=== PATIENT | male | born 1950 | race Caucasian/White ===

== ENCOUNTER 2019-01-29 12:20 | Inpatient (IN) | payer MEDICARE ==
[2019-01-29] MEDS ORDERED: IPRATROPIUM-ALBUTEROL 3 ML NEB INHALATION STA (12:58)
--- NOTE | 2019-01-29 13:06 | ED ---
General Adult HPI - General Source: patient, RN notes reviewed Mode of arrival: ambulatory Limitations: no limitations <Kirk Garner - Last Filed: 01/29/19 16:08> <Chano Caro - Last Filed: 01/29/19 16:41> - General Chief complaint: Upper Respiratory Infection Stated complaint: pneumonia Time Seen by Provider: 01/29/19 12:40 - History of Present Illness Initial comments: 69-year-old male with a past medical history of atrial fibrillation, heart failure, diabetes, hypertension presents to the emergency determine for deformity of cough. Patient states he has had a productive cough with brown sputum for the past 5 days. States he has felt febrile as well. States he has had some chest pain and back pain. States the shortness of breath is keeping him up at night and feels that he is suffocating. Patient admits to cigar smoking history for many years. Also admits to history of heart failure but denies any known COPD. Patient did fly on a plane about a week ago from [place]. Denies any leg or calf pain. Patient went to urgent care earlier and was told he probably has a pneumonia and to come to the emergency department.Patient has no other complaints at this time including shortness of breath, chest pain, abdominal pain, nausea or vomiting, headache, or visual changes. (Kirk Garner) - Related Data Home Medications Medication Instructions Recorded Confirmed Dabigatran [Pradaxa] 150 mg PO BID 01/29/19 01/29/19 Losartan Potassium 100 mg PO DAILY 01/29/19 01/29/19 Melatonin 2.5 mg PO HS 01/29/19 01/29/19 OLANZapine [ZyPREXA] 2.5 mg PO DAILY 01/29/19 01/29/19 Omeprazole 20 mg PO DAILY 01/29/19 01/29/19 amLODIPine [Norvasc] 5 mg PO DAILY 01/29/19 01/29/19 clonazePAM [KlonoPIN] 1 mg PO HS 01/29/19 01/29/19 fluvoxaMINE MALEATE [Luvox] 100 mg PO HS 01/29/19 01/29/19 traZODone HCL 50 mg PO HS 01/29/19 01/29/19 Allergies Allergy/AdvReac Type Severity Reaction Status Date / Time No Known Allergies Allergy Verified 01/29/19 12:51 Review of Systems ROS Other: All systems not noted in ROS Statement are negative. <Kirk Garenr - Last Filed: 01/29/19 16:08> ROS Other: All systems not noted in ROS Statement are negative. <Chano Caro - Last Filed: 01/29/19 16:41> ROS Statement: Those systems with pertinent positive or pertinent negative responses have been documented in the HPI. Past Medical History Past Medical History: Atrial Fibrillation, Heart Failure, Diabetes Mellitus, Hypertension History of Any Multi-Drug Resistant Organisms: None Reported Past Surgical History: Hernia Repair, Orthopedic Surgery Past Psychological History: Anxiety, Depression Smoking Status: Never smoker Past Alcohol Use History: None Reported Past Drug Use History: None Reported <Kirk Garner - Last Filed: 01/29/19 16:08> General Exam Limitations: no limitations General appearance: alert, in no apparent distress Head exam: Present: atraumatic, normocephalic, normal inspection Eye exam: Present: normal appearance, PERRL, EOMI. Absent: scleral icterus, conjunctival injection, periorbital swelling ENT exam: Present: normal exam, mucous membranes moist Neck exam: Present: normal inspection, full ROM. Absent: tenderness, meningismus, lymphadenopathy Respiratory exam: Present: wheezes (Wheezing throughout lung johnson worse in the lower lungs.). Absent: respiratory distress, rales, rhonchi, stridor Cardiovascular Exam: Present: regular rate, normal rhythm, normal heart sounds. Absent: systolic murmur, diastolic murmur, rubs, gallop, clicks GI/Abdominal exam: Present: soft, normal bowel sounds. Absent: distended, tenderness, guarding, rebound, rigid Neurological exam: Present: alert Psychiatric exam: Present: normal affect, normal mood <Kirk Garner - Last Filed: 01/29/19 16:08> Course Vital Signs 01/29/19 01/29/19 01/29/19 12:22 12:53 13:30 Temperature 98.4 F Pulse Rate 62 57 L Respiratory 18 22 Rate Blood Pressure 152/61 O2 Sat by Pulse 93 L Oximetry 01/29/19 01/29/19 01/29/19 13:33 13:35 14:21 Temperature Pulse Rate 65 63 Respiratory 22 Rate Blood Pressure O2 Sat by Pulse 97 Oximetry 01/29/19 01/29/19 15:00 16:31 Temperature 100.7 F H Pulse Rate 59 L 53 L Respiratory 16 22 Rate Blood Pressure 163/65 O2 Sat by Pulse 94 L 95 Oximetry EKG Findings - EKG Comments: EKG Findings:: Atrial fibrillation, ventricular rate 56, QRS 84, QTC 395 <Kirk Garner - Last Filed: 01/29/19 16:08> Medical Decision Making - Lab Data Result diagrams: 01/29/19 13:36 01/29/19 13:36 <Kirk Garner - Last Filed: 01/29/19 16:08> - Lab Data Result diagrams: 01/29/19 13:36 01/29/19 13:36 <Chano Caro - Last Filed: 01/29/19 16:41> - Medical Decision Making 69-year-old male with a history of atrial fibrillation on Prozac sec, heart failure, diabetes, hypertension presents for a chief complaint of cough. Patient has had a productive cough with brown sputum for the past 5 days. States he has felt febrile but has not had any fevers at home. States that he is very short of breath and it is keeping him up at night. Does admit to a cigar smoking history for many years. Denies any known COPD at this time. On presentation patient is 93% on room air. He was started on 2 L of oxygen. Patient sometimes uses oxygen at home but it is very rare. On auscultation lungs do have significant wheezing with some crackles noted at the bases. Rest pain with coughing this is reproducible. CBC unremarkable. CMP unremarkable. Troponin is negative. D-dimer was obtained due to recent travel which was elevated at 0.70. CT did show small bilateral pleural effusions. BNP 1250. At this time I believe patient is expressing a COPD exacerbation and has gone undiagnosed. He did spike a low-grade fever of 100.7. If the patient will be started on antibiotics, steroids, breathing treatments. One dose of Lasix will be given here in the emergency department. Patient will be admitted for further management. (Kirk Garner) Patient reevaluated and resting comfortably in bed. Patient still has significant rhonchi and wheezing. Patient updated on results and plan. Case was discussed in detail with Dr. Chaudhry, who will admit covered for hospital call with [facility]. (Chano Caro) - Lab Data Lab Results 01/29/19 01/29/19 01/29/19 Range/Units 13:36 13:36 13:36 WBC 5.2 (3.8-10.6) k/uL RBC 4.03 L (4.30-5.90) m/uL Hgb 12.5 L (13.0-17.5) gm/dL Hct 36.4 L (39.0-53.0) % MCV 90.3 (80.0-100.0) fL MCH 30.9 (25.0-35.0) pg MCHC 34.3 (31.0-37.0) g/dL RDW 14.4 (11.5-15.5) % Plt Count 183 (150-450) k/uL Neutrophils % 77 % Lymphocytes % 11 % Monocytes % 7 % Eosinophils % 3 % Basophils % 0 % Neutrophils # 4.0 (1.3-7.7) k/uL Lymphocytes # 0.6 L (1.0-4.8) k/uL Monocytes # 0.3 (0-1.0) k/uL Eosinophils # 0.2 (0-0.7) k/uL Basophils # 0.0 (0-0.2) k/uL PT (9.0-12.0) sec INR (<1.2) APTT (22.0-30.0) sec D-Dimer (<0.60) mg/L FEU Sodium 140 (137-145) mmol/L Potassium 4.0 (3.5-5.1) mmol/L Chloride 104 (98-107) mmol/L Carbon Dioxide 23 (22-30) mmol/L Anion Gap 13 mmol/L BUN 12 (9-20) mg/dL Creatinine 1.09 (0.66-1.25) mg/dL Est GFR (CKD-EPI)AfAm 79 (>60 ml/min/1.73 sqM) Est GFR (CKD-EPI)NonAf 68 (>60 ml/min/1.73 sqM) Glucose 136 H (74-99) mg/dL Calcium 9.2 (8.4-10.2) mg/dL Magnesium 1.8 (1.6-2.3) mg/dL Total Bilirubin 1.8 H (0.2-1.3) mg/dL AST 32 (17-59) U/L ALT 24 (21-72) U/L Alkaline Phosphatase 63 (38-126) U/L Troponin I (0.000-0.034) ng/mL NT-Pro-B Natriuret Pep 1250 pg/mL Total Protein 7.5 (6.3-8.2) g/dL Albumin 3.9 (3.5-5.0) g/dL 01/29/19 01/29/19 Range/Units 13:36 13:36 WBC (3.8-10.6) k/uL RBC (4.30-5.90) m/uL Hgb (13.0-17.5) gm/dL Hct (39.0-53.0) % MCV (80.0-100.0) fL MCH (25.0-35.0) pg MCHC (31.0-37.0) g/dL RDW (11.5-15.5) % Plt Count (150-450) k/uL Neutrophils % % Lymphocytes % % Monocytes % % Eosinophils % % Basophils % % Neutrophils # (1.3-7.7) k/uL Lymphocytes # (1.0-4.8) k/uL Monocytes # (0-1.0) k/uL Eosinophils # (0-0.7) k/uL Basophils # (0-0.2) k/uL PT 11.5 (9.0-12.0) sec INR 1.1 (<1.2) APTT 36.6 H (22.0-30.0) sec D-Dimer 0.70 H (<0.60) mg/L FEU Sodium (137-145) mmol/L Potassium (3.5-5.1) mmol/L Chloride (98-107) mmol/L Carbon Dioxide (22-30) mmol/L Anion Gap mmol/L BUN (9-20) mg/dL Creatinine (0.66-1.25) mg/dL Est GFR (CKD-EPI)AfAm (>60 ml/min/1.73 sqM) Est GFR (CKD-EPI)NonAf (>60 ml/min/1.73 sqM) Glucose (74-99) mg/dL Calcium (8.4-10.2) mg/dL Magnesium (1.6-2.3) mg/dL Total Bilirubin (0.2-1.3) mg/dL AST (17-59) U/L ALT (21-72) U/L Alkaline Phosphatase (38-126) U/L Troponin I <0.012 (0.000-0.034) ng/mL NT-Pro-B Natriuret Pep pg/mL Total Protein (6.3-8.2) g/dL Albumin (3.5-5.0) g/dL Disposition Is patient prescribed a controlled substance at d/c from ED?: No Time of Disposition: 16:02 <Kirk Garner - Last Filed: 01/29/19 16:08> <Chano Caro - Last Filed: 01/29/19 16:41> Clinical Impression: COPD exacerbation, Shortness of breath, Bilateral pleural effusion Disposition: ADMITTED IP TO THIS HOSP Condition: Fair Referrals: Nonstaff,Physician [Primary Care Provider] - 1-2 days
--- NOTE | 2019-01-29 14:05 | XR ---
EXAMINATION TYPE: XR chest 2V DATE OF EXAM: 01/29/2019 COMPARISON: NONE TECHNIQUE: PA and lateral views submitted. HISTORY: Shortness of breath FINDINGS: Heart is enlarged and there is bilateral small pleural effusions and basilar consolidation. Interstit ial pattern noted. Biapical pleural thickening. IMPRESSION: 1. Correlate for CHF.
[2019-01-29 14:06] LABS: Albumin 3.9 g/dL (3.5-5.0); Calcium 9.2 mg/dL (8.4-10.2); Magnesium 1.8 mg/dL (1.6-2.3); Total Bilirubin 1.8 mg/dL (0.2-1.3); Total Protein 7.5 g/dL (6.3-8.2)
[2019-01-29 14:10] LABS: INR 1.1 (<1.2); Partial Thromboplastin Time 36.6 sec (22.0-30.0); Prothrombin Time 11.5 sec (9.0-12.0)
[2019-01-29 14:11] LABS: Basophils % (A) 0 %; Eosinophils # (A) 0.2 k/uL (0-0.7); Eosinophils % (A) 3 %; HCT 36.4 % (39.0-53.0); HGB 12.5 gm/dL (13.0-17.5); Lymphocytes # (A) 0.6 k/uL (1.0-4.8); Lymphocytes % (A) 11 %; MCH 30.9 pg (25.0-35.0); MCHC 34.3 g/dL (31.0-37.0); MCV 90.3 fL (80.0-100.0); Mean Platelet Volume 7.8; Monocytes # (A) 0.3 k/uL (0-1.0); Monocytes % (A) 7 %; Neutrophils % (A) 77 %; Platelet Count 183 k/uL (150-450); RBC 4.03 m/uL (4.30-5.90); RDW 14.4 % (11.5-15.5); WBC 5.2 k/uL (3.8-10.6)
[2019-01-29 14:23] LABS: D-Dimer 0.7 mg/L FEU (<0.60)
--- NOTE | 2019-01-29 15:14 | CT ---
CT CHEST FOR PULMONARY EMBOLISM. EXAMINATION TYPE: CT chest angio for PE DATE OF EXAM: 01/29/2019 INDICATION: Cough and trouble breathing CT DLP: 1022 mGycm, Automated exposure control for dose reduction was used. CONTRAST: Patient injected with 100 mL of Isovue 370. COMPARISON: None TECHNIQUE: CT of the chest is performed on a spiral scan at 2 mm thick sections. Study is performed with intravenous contrast timed for evaluation for pulmonary embolism. This will limit additional po rtions of the evaluation. 3-D MIP images reconstructed by the technologist are reviewed on the compu ter in the coronal and sagittal planes. FINDINGS: No persistent filling defects are evident to suggest an acute pulmonary embolism. No mediastinal or hilar adenopathy enlarged by CT criteria is evident. The ascending aorta diameter at the level of the main pulmonary artery is 3.6 cm. The main pulmonary artery diameter at the bifur cation is 4.1 cm. Pulmonary hypertension should be considered. Right heart strain is not identified o therwise. There is some compressive atelectasis within the dependent portions of the lung bases bilaterally. Sm all bilateral pleural effusions are present. Limited CT section through the upper abdomen are unremarkable. IMPRESSIONS: 1. No acute pulmonary embolism. 2. Small bilateral pleural effusions with mild adjacent compressive atelectasis
[2019-01-29] MEDS ORDERED: FUROSEMIDE 10 MG/ML 2 ML VIAL IV STA (15:58)
[2019-01-29] MEDS ORDERED: methylPREDNISolone SOD SUCCI 125 MG/2 ML VIAL IV STA (16:02)
[2019-01-29] MEDS ORDERED: AZITHROMYCIN 500 MG in SODIUM CHLORIDE 0.9% 250 ML IVPB STA (16:07)
[2019-01-29] MEDS ORDERED: predniSONE 20 MG TAB PO SCH (16:15)
[2019-01-29] MEDS ORDERED: NALOXONE 0.4 MG/ML 1 ML VIAL IV PRN (18:07)
[2019-01-29] MEDS ORDERED: ACETAMINOPHEN TAB 325 MG TAB PO PRN (18:07)
[2019-01-29] MEDS: IPRATROPIUM-ALBUTEROL 3 ML NEB INHALATION SCH (18:15)
--- NOTE | 2019-01-29 18:41 | P.HPIM ---
History of Present Illness H&P Date: 01/29/19 Chief Complaint: Shortens with cough and sputum for 4-5 days prior to presen tation This 69-year-old male with past medical history significant for congestive heart failure, And manages type II, hypertension, atrial fibrillation on anticoagulation, gastroesophageal reflux disease and depression with anxiety disorder who presented to the hospital with above complaints. Patient apparently lives in [place] and was visiting his son in this area. Patient stated that just about the time when he reached [place] he started developing increasing shortness of breath. Patient stated that he was coughing and wheezing a lot. He was coughing up brownish phlegm with the blood tinge in it. Patient stated that he was feeling hot and cold and chilly but did not check his temperature. Patient stated that he was having difficulty laying down because of his shortness of breath and at times he has to wake up in the middle of the night and sit on the side of the bed to catch his breath. Patient also stated that his legs were getting little swollen which improves when he lays down in bed during the night. With these complaints patient was using [id number] decongestant medications without significant help so he came to the hospital for further evaluation. In the emergency department patient had extensive evaluation done including chest x-ray which showed some congestion, elevated d- dimer on blood test, CT PE protocol showed no pulmonary embolism. Patient was given nebulized treatment with some improvement in his condition and was diagnosed with COPD exacerbation and was admitted to the hospitalist service for further management. Patient denies chest pain, palpitation, headache, dizziness, diaphoresis, nausea, vomiting, diarrhea and denies rest of the review system. He reports that his shortness of breath was associated with ambulation and also while laying down. He stated that he used inhalers from his ex- without help. Patient stated he did not brought his inhalers which she was using while he was in [place]. Patient was given 20 mg IV Lasix and was started on IV Rocephin/azithromycin. Patient reported after getting these treatment he started feeling somewhat better. Review of Systems 12 point review of system was essentially negative other than mentioned in HPI. Past Medical History Past Medical History: Atrial Fibrillation, Heart Failure, Diabetes Mellitus, GERD/Reflux, Hypertension Additional Past Medical History / Comment(s): Depression and anxiety disorder. History of Any Multi-Drug Resistant Organisms: None Reported Past Surgical History: Hernia Repair, Orthopedic Surgery Past Psychological History: Anxiety, Depression Smoking Status: Former smoker (Smokes cigars in the past quit 4 years ago.) Past Alcohol Use History: None Reported Past Drug Use History: None Reported Medications and Allergies Home Medications Medication Instructions Recorded Confirmed Type Dabigatran [Pradaxa] 150 mg PO BID 01/29/19 01/29/19 History Losartan Potassium 100 mg PO DAILY 01/29/19 01/29/19 History Melatonin 2.5 mg PO HS 01/29/19 01/29/19 History OLANZapine [ZyPREXA] 2.5 mg PO DAILY 01/29/19 01/29/19 History Omeprazole 20 mg PO DAILY 01/29/19 01/29/19 History amLODIPine [Norvasc] 5 mg PO DAILY 01/29/19 01/29/19 History clonazePAM [KlonoPIN] 1 mg PO HS 01/29/19 01/29/19 History fluvoxaMINE MALEATE [Luvox] 100 mg PO HS 01/29/19 01/29/19 History traZODone HCL 50 mg PO HS 01/29/19 01/29/19 History Allergies Allergy/AdvReac Type Severity Reaction Status Date / Time No Known Allergies Allergy Verified 01/29/19 12:51 Physical Exam Vitals: Vital Signs Temp Pulse Resp BP Pulse Ox 01/29/19 18:18 68 01/29/19 16:31 53 L 22 163/65 95 01/29/19 15:00 100.7 F H 59 L 16 94 L 01/29/19 14:21 22 01/29/19 13:35 63 01/29/19 13:33 65 97 01/29/19 13:30 57 L 01/29/19 12:53 22 01/29/19 12:22 98.4 F 62 18 152/61 93 L Intake and Output 01/29/19 01/29/19 01/29/19 06:59 14:59 22:59 Other: Weight 122.47 kg - Constitutional General appearance: cooperative, morbidly obese, severe distress - EENT Eyes: EOMI, normal appearance ENT: hearing grossly normal, NA/AT - Neck Neck: no lymphadenopathy, normal ROM, no rigidity, no stridor, no thyromegaly - Respiratory Respiratory: bilateral: diminished, rhonchi, wheezing, prolonged expiration, negative: rales - Cardiovascular Trace bilateral lower extremity pitting edema noted. Heart rate: 69 Rhythm: irregularly irregular Heart sounds: normal: S1 (Variable heart sounds.), S2 Abnormal Heart Sounds: no systolic murmur, no diastolic murmur, no S3 Gallop, no S4 Gallop - Gastrointestinal Diffusely large bulky abdomen. General gastrointestinal: no distended, normal bowel sounds, no rigid, soft, no tenderness - Integumentary Integumentary: no cellulitis, no cyanotic, no decreased turgor, no flushed, no jaundiced, normal, no pale, no rash, no ulcer - Neurologic Moves all 4 extremities equally without gross focal neuro deficits. Neurologic: CNII-XII intact - Musculoskeletal Musculoskeletal: gait normal, no generalized weakness, strength equal bilaterally, no right sided weakness, no left sided weakness - Psychiatric Psychiatric: A&O x's 3, appropriate affect, intact judgment & insight Results CBC & Chem 7: 01/29/19 13:36 01/29/19 13:36 Labs: Abnormal Lab Results - Last 24 Hours (Table) 01/29/19 01/29/19 01/29/19 Range/Units 13:36 13:36 13:36 RBC 4.03 L (4.30-5.90) m/uL Hgb 12.5 L (13.0-17.5) gm/dL Hct 36.4 L (39.0-53.0) % Lymphocytes # 0.6 L (1.0-4.8) k/uL APTT 36.6 H (22.0-30.0) sec D-Dimer 0.70 H (<0.60) mg/L FEU Glucose 136 H (74-99) mg/dL Total Bilirubin 1.8 H (0.2-1.3) mg/dL Thrombosis Risk Factor Assmnt - DVT/VTE Prophylaxis DVT/VTE Prophylaxis: Contraindicated - See note (Patient already on Pardaxa for atrial fibrillation anticoagulation) Assessment and Plan (1) COPD exacerbation Narrative/Plan: Patient was started on IV antibiotics and HHN treatment with albuterol and Atrovent around the clock. Patient will be given IV steroids also. We will be continuing him on nasal cannula oxygen and monitoring his respiratory status. Current Visit: Yes Status: Acute Priority: High Code(s): J44.1 - CHRONIC OBSTRUCTIVE PULMONARY DISEASE W (ACUTE) EXACERBATION SNOMED Code(s): 449670652 (2) CHF (congestive heart failure) Narrative/Plan: There is no prior data available about the condition of the heart, patient did urinated significant amount of urine after 20 mg of IV Lasix I will continue as 10 mg IV Lasix every morning and monitor. Patient will be referred to cardiology for further evaluation and management. If needed 2-D echocardiogram will be done to assess his cardiac function. Patient was not on diuretic therapy at home but he stated that he was told that his heart is weak. Patient will be started on daily weights and strict I's and O's. Current Visit: Yes Status: Acute Priority: High Code(s): I50.9 - HEART FAILURE, UNSPECIFIED SNOMED Code(s): 23886392 (3) Atrial fibrillation with controlled ventricular rate Narrative/Plan: Patient heart rate is well controlled will put him on telemetry unit and monitor his heart rate. Patient may become tachycardic in response to albuterol treat ment and requires monitoring for next 24-48 hours. Patient is on anticoagulation with PARDEXA, we'll continue while he is in the hospital. Current Visit: Yes Status: Acute Priority: Medium Code(s): I48.91 - UNSPECIFIED ATRIAL FIBRILLATION SNOMED Code(s): 94290830 (4) Diabetes mellitus type 2 in obese Narrative/Plan: Patient started on consistent carbohydrate diet and his blood sugar will be monitored. Patient will be on IV steroids and that is going to increase the blood sugar so we will start him on sliding scale insulin aspart coverage per protocol. Current Visit: Yes Status: Acute Priority: Medium Code(s): E11.69 - TYPE 2 DIABETES MELLITUS WITH OTHER SPECIFIED COMPLICATION; E66.9 - OBESITY, UNSPECIFIED SNOMED Code(s): 71619145 (5) Hypertension, essential, benign Narrative/Plan: Blood pressure is slightly on the higher side most likely due to stress of coughing and acute illness. We will resume his home medication and monitor b lood pressure. Current Visit: Yes Status: Acute Priority: Medium Code(s): I10 - ESSENTIAL (PRIMARY) HYPERTENSION SNOMED Code(s): 6887572 (6) GERD (gastroesophageal reflux disease) Narrative/Plan: Currently patient is stable without symptoms we will resume his home proton pump inhibitor dose. Current Visit: Yes Status: Acute Priority: Medium Code(s): K21.9 - GASTRO- ESOPHAGEAL REFLUX DISEASE WITHOUT ESOPHAGITIS SNOMED Code(s): 118406083 (7) Depression Narrative/Plan: Is stable on current management, home medication will be continued. Current Visit: No Status: Chronic Priority: Medium Code(s): F32.9 - MAJOR DEPRESSIVE DISORDER, SINGLE EPISODE, UNSPECIFIED SNOMED Code(s): 03021689 (8) Anxiety disorder Narrative/Plan: Anxiety is well maintained and controlled on current management, I will continue home medications. Current Visit: No Status: Chronic Priority: Medium Code(s): F41.9 - ANXIETY DISORDER, UNSPECIFIED SNOMED Code(s): 734701015 Plan: Patient will be kept in the hospital for next 48-72 hours for IV antibiotics management and once patient is more stable he will be discharged on oral jailyn tment and patient will be going back to [place] following up with his on PCP and rental agent. Time with Patient: Greater than 30
[2019-01-29 21:30] VITALS: BMI 41.8
[2019-01-29] MEDS: methylPREDNISolone SOD SUCCI 125 MG/2 ML VIAL IV SCH ×2 (22:47→23:53)
[2019-01-29] MEDS: MELATONIN 5 MG TABLET PO SCH (22:51)
[2019-01-29] MEDS: traZODone HCL 50 MG TAB PO SCH (22:51)
[2019-01-29] MEDS: DABIGATRAN 150 MG CAP PO SCH (22:51)
[2019-01-29] MEDS: clonazePAM 1 MG TAB PO SCH (22:52)
[2019-01-30] MEDS: methylPREDNISolone SOD SUCCI 125 MG/2 ML VIAL IV SCH ×3 (06:13→17:19)
[2019-01-30 07:28] LABS: Glucose,Whole Blood 270 mg/dL (75-99)
[2019-01-30] MEDS: INSULIN ASPART (NovoLOG) 100 UNIT/ML VIAL SQ SCH ×4 (07:40→17:20)
[2019-01-30] MEDS: amLODIPine 5 MG TAB PO SCH (07:46)
[2019-01-30] MEDS: LOSARTAN 50 MG TAB PO SCH (07:46)
[2019-01-30] MEDS: PANTOPRAZOLE 40 MG TABLET PO SCH (07:46)
[2019-01-30] MEDS: OLANZapine 2.5 MG TAB PO SCH (07:47)
[2019-01-30] MEDS: DABIGATRAN 150 MG CAP PO SCH ×2 (07:48→22:04)
[2019-01-30] MEDS: IPRATROPIUM-ALBUTEROL 3 ML NEB INHALATION SCH ×5 (08:07→19:56)
[2019-01-30 08:27] LABS: Basophils % (A) 0 %; Eosinophils % (A) 0 %; HGB 12.5 gm/dL (13.0-17.5); Lymphocytes # (A) 0.6 k/uL (1.0-4.8); Lymphocytes % (A) 10 %; MCH 30.4 pg (25.0-35.0); MCV 92.1 fL (80.0-100.0); Mean Platelet Volume 7.3; Monocytes # (A) 0.2 k/uL (0-1.0); Monocytes % (A) 2 %; Neutrophils # (A) 5.5 k/uL (1.3-7.7); Neutrophils % (A) 86 %; Platelet Count 198 k/uL (150-450); RBC 4.12 m/uL (4.30-5.90); RDW 13.5 % (11.5-15.5); WBC 6.3 k/uL (3.8-10.6)
[2019-01-30 08:53] LABS: Calcium 9.4 mg/dL (8.4-10.2); Potassium 4.3 mmol/L (3.5-5.1)
[2019-01-30] MEDS ORDERED: AZITHROMYCIN 500 MG in SODIUM CHLORIDE 0.9% 250 ML IVPB SCH (09:00)
[2019-01-30] MEDS ORDERED: FUROSEMIDE 10 MG/ML 2 ML VIAL IV SCH (09:00)
[2019-01-30] MEDS: FUROSEMIDE 10 MG/ML 4 ML VIAL IV SCH ×2 (09:10→22:02)
[2019-01-30] MEDS: INSULIN DETEMIR (LEVEMIR) 100 UNIT/ML SYR SQ SCH (11:10)
[2019-01-30 11:50] LABS: Glucose,Whole Blood 285 mg/dL (75-99)
--- NOTE | 2019-01-30 11:52 | P.PN ---
Subjective Progress Note Date: 01/30/19 Today patient reports that he is feeling little better and his breathing/cough is slightly better but overall condition stays the same. Patient states he is able to walk to the bathroom but still having episodes of shortness of breath and wheezing. Noted that patient's diuretic has been increased by cardiology service and patient was having echocardiogram when this copywriter visited him. Patient denies fever, chills, nausea, vomiting, diarrhea but he states his shortness of breath is still there although slightly better. His cough and phlegm production is slightly better too. Nurses reported the patient's blood sugar is running around 250s and he reported that he was on insulin at home but forgot to report at the time of admission. Patient reported that he is takes 32 units of insulin glargine every morning and insulin aspart as needed depending upon the blood glucose. Objective - Vital Signs Vital signs: Vital Signs Temp 97.9 F 01/30/19 07:00 Pulse 70 01/30/19 11:41 Resp 16 01/30/19 08:00 BP 162/63 01/30/19 07:00 Pulse Ox 91 L 01/30/19 07:00 Intake & Output 01/29/19 01/30/19 01/30/19 18:59 06:59 18:59 Output Total 1000 Balance -1000 Weight 122.47 kg 122.3 kg Output: Urine 1000 Other: Voiding Method Toilet Toilet # Voids 1 - Constitutional General appearance: Present: cooperative, no acute distress - EENT Eyes: Present: EOMI, normal appearance ENT: Present: hearing grossly normal, NA/AT - Neck Neck: Present: normal ROM. Absent: lymphadenopathy, rigidity, stridor, thyromegaly - Respiratory Respiratory: bilateral: diminished, rhonchi, wheezing - Cardiovascular Rhythm: regular Heart sounds: normal: S1, S2 Abnormal Heart Sounds: Absent: systolic murmur, diastolic murmur, S3 Gallop, S4 Gallop - Gastrointestinal General gastrointestinal: Present: normal bowel sounds, soft. Absent: distended, rigid, tenderness - Neurologic Neurologic: Present: CNII-XII intact. Absent: focal deficits - Psychiatric Psychiatric: Present: A&O x's 3, appropriate affect, intact judgment & insight - Allied health notes Allied health notes reviewed: nursing - Labs CBC & Chem 7: 01/30/19 07:48 01/30/19 07:48 Labs: Abnormal Lab Results - Last 24 Hours (Table) 01/29/19 01/29/19 01/29/19 Range/Units 13:36 13:36 13:36 RBC 4.03 L (4.30-5.90) m/uL Hgb 12.5 L (13.0-17.5) gm/dL Hct 36.4 L (39.0-53.0) % Lymphocytes # 0.6 L (1.0-4.8) k/uL APTT 36.6 H (22.0-30.0) sec D-Dimer 0.70 H (<0.60) mg/L FEU Glucose 136 H (74-99) mg/dL POC Glucose (mg/dL) (75-99) mg/dL Total Bilirubin 1.8 H (0.2-1.3) mg/dL 01/30/19 01/30/19 01/30/19 Range/Units 07:26 07:48 07:48 RBC 4.12 L (4.30-5.90) m/uL Hgb 12.5 L (13.0-17.5) gm/dL Hct 38.0 L (39.0-53.0) % Lymphocytes # 0.6 L (1.0-4.8) k/uL APTT (22.0-30.0) sec D-Dimer (<0.60) mg/L FEU Glucose 256 H (74-99) mg/dL POC Glucose (mg/dL) 270 H (75-99) mg/dL Total Bilirubin (0.2-1.3) mg/dL Assessment and Plan (1) COPD exacerbation Current Visit: Yes Status: Acute Priority: High Code(s): J44.1 - CHRONIC OBSTRUCTIVE PULMONARY DISEASE W (ACUTE) EXACERBATION SNOMED Code(s): 221485312 (2) CHF (congestive heart failure) Current Visit: Yes Status: Acute Priority: High Code(s): I50.9 - HEART FAILURE, UNSPECIFIED SNOMED Code(s): 74644440 (3) Atrial fibrillation with controlled ventricular rate Current Visit: Yes Status: Acute Priority: Medium Code(s): I48.91 - UNSPECIFIED ATRIAL FIBRILLATION SNOMED Code(s): 70682374 (4) Diabetes mellitus type 2 in obese Current Visit: Yes Status: Acute Priority: Medium Code(s): E11.69 - TYPE 2 DIABETES MELLITUS WITH OTHER SPECIFIED COMPLICATION; E66.9 - OBESITY, UNSPECIFIED SNOMED Code(s): 36571571 (5) Hypertension, essential, benign Current Visit: Yes Status: Acute Priority: Medium Code(s): I10 - ESSENTIAL (PRIMARY) HYPERTENSION SNOMED Code(s): 4660697 (6) GERD (gastroesophageal reflux disease) Current Visit: Yes Status: Acute Priority: Medium Code(s): K21.9 - GASTRO- ESOPHAGEAL REFLUX DISEASE WITHOUT ESOPHAGITIS SNOMED Code(s): 036613306 (7) Depression Current Visit: No Status: Chronic Priority: Medium Code(s): F32.9 - MAJOR DEPRESSIVE DISORDER, SINGLE EPISODE, UNSPECIFIED SNOMED Code(s): 59552868 (8) Anxiety disorder Current Visit: No Status: Chronic Priority: Medium Code(s): F41.9 - ANXIETY DISORDER, UNSPECIFIED SNOMED Code(s): 478310574 Plan: Patient current management will be continued as it is but I will increase the dose of hand-held unless treatment to every 4 hours. Patient's daily weights will be monitored and strict input and output will be measured. 2-D echocardiogram was done report is pending at this point. Patient will be started on two third of his home dose of insulin glargine i.e. 20 units and he will be continued on sliding scale insulin Aspart coverage. Advanced care plan was discussed and patient wants to continue full code. Rest of the medications for chronic stable medical problems will be continued as it is. Plan is to continue treatment for next 24-48 hours and if patient shows signs of significant improvement he can be transitioned to oral antibiotics and discharged home. Time with Patient: Less than 30
--- NOTE | 2019-01-30 13:51 | P.CRDCN ---
History of Present Illness History of present illness: This is a pleasant 69-year-old male past medical history significant for persistent atrial fibrillation, chronic heart failure of unknown type, diabetes mellitus, hypertension, former nicotine dependence and gastroesophageal reflux disease. The patient is currently in [place] visiting his son from [facility]. He presented to the hospital with symptoms of shortness of breath. We have been asked to see him in consultation secondary to heart failure. He states for the previous couple of days he has noticed increased shortness of breath and productive cough. He had been using a friend's inhaler and was achieving some relief however his symptoms seemed to be getting worse and more frequent. On arrival x-ray of his chest revealed bilateral small pleural effusions and basilar consolidation with biapical pleural thickening. CT of the chest was negative for pulmonary embolism, small bilateral pleural effusions and compressive atelectasis. Laboratory data reviewed, WBC 6.3, hemoglobin 12.5, platelets 198, d-dimer 0.7, sodium 138, potassium 4.3, creatin ine 1.1, magnesium 1.8, cardiac enzymes negative 1, NT proBNP 1250. Current daily cardiac medications include Primaxin 150 mg twice a day, losartan 100 mg daily and amlodipine 5 mg daily. EKG reveals atrial fibrillation with slow ventricular response, heart rate 56. Has been initiated on IV antibiotics per ER. At the time of my exam: CONSTITUTIONAL: Denies fever. Denies chills. EYES: Denies blurred vision. Denies vision changes. Denies eye pain. EARS, NOSE, MOUTH & THROAT: Denies headache. Denies sore throat. Denies ear pain. CARDIOVASCULAR: Denies chest pain. Complains of shortness of breath. Denies orthopnea. Denies PND. Denies palpitations. RESPIRATORY: Complains of cough. GASTROINTESTINAL: Denies abdominal pain. Denies diarrhea. Denies constipation. Denies nausea. Denies vomiting. MUSCULOSKELETAL: Denies myalgias. INTEGUMENTARY: Denies pruitis. Denies rash. NEUROLOGIC: Denies numbness. Denies tingling. Denies weakness. PSYCHIATRIC: Denies anxiety. Denies depression. ENDOCRINE: Denies fatigue. Denies weight change. Denies polydipsia. Denies polyurina. GENITOURINARY: Denies burning, hematuria or urgency with micturation. HEMATOLOGIC: Denies history of anemia. Denies bleeding. Blood pressure 162/63 heart rate 54 afebrile maintaining oxygen saturation on nasal cannula. GENERAL: This is a 69-year-old male in no apparent distress at the time of my examination. Morbidly obese. HEENT: Head is atraumatic, normocephalic. Pupils are equal, round. Sclerae anicteric. Conjunctivae are clear. Mucous membranes of the mouth are moist. Neck is supple. There is no jugular venous distention. No carotid bruit is heard. LUNGS: Bibasilar rales, expiratory wheeze. No rhonchi. No chest wall tenderness is noted on palpation or with deep breathing. HEART: Irregular rate and rhythm with systolic ejection murmur at the left sternal border, no rubs or gallops. S1 and S2 heard. ABDOMEN: Soft, nontender. Bowel sounds are heard. No organomegaly noted. Protuberant. EXTREMITIES: No evidence of peripheral edema and no calf tenderness noted. VASCULAR: Radial and dorsalis pedis pulses palpated, no evidence of clubbing. NEUROLOGIC: Patient is awake, alert and oriented x3. ASSESSMENT Acute exacerbation of chronic heart failure, unknown type. Mild exacerbation Exacerbation of COPD Persistent atrial fibrillation on long-term anticoagulation Diabetes mellitus Hypertension Morbid obesity, BMI 41 PLAN Increase lasix to 40 mg IV BID. Document accurate intake and output along with daily weights to assess diuresis. Obtain 2D echocardiogram and doppler study to assess cardiac structure and function. Follow renal function and electrolytes in the morning. Check lipid profile. Consider addition of NADIA/ARB for better blood pressure control vs increase amlodipine depending on LV function. Further recommendations to follow based on clinical course. Thank you kindly for this consultation. Nurse Practitioner note has been reviewed, I agree with a documented findings and plan of care. Patient was seen and examined. Past Medical History Past Medical History: Atrial Fibrillation, Heart Failure, Diabetes Mellitus, GERD/Reflux, Hypertension Additional Past Medical History / Comment(s): Depression and anxiety disorder. History of Any Multi-Drug Resistant Organisms: None Reported Past Surgical History: Hernia Repair, Orthopedic Surgery Additional Past Surgical History / Comment(s): Bilat hands Carpule tunnel surg. Past Anesthesia/Blood Transfusion Reactions: No Reported Reaction Past Psychological History: Anxiety, Depression Smoking Status: Former smoker Past Alcohol Use History: None Reported Past Drug Use History: None Reported - Past Family History Mother Family Medical History: Cancer Medications and Allergies Home Medications Medication Instructions Recorded Confirmed Type Dabigatran [Pradaxa] 150 mg PO BID 01/29/19 01/29/19 History Losartan Potassium 100 mg PO DAILY 01/29/19 01/29/19 History Melatonin 2.5 mg PO HS 01/29/19 01/29/19 History OLANZapine [ZyPREXA] 2.5 mg PO DAILY 01/29/19 01/29/19 History Omeprazole 20 mg PO DAILY 01/29/19 01/29/19 History amLODIPine [Norvasc] 5 mg PO DAILY 01/29/19 01/29/19 History clonazePAM [KlonoPIN] 1 mg PO HS 01/29/19 01/29/19 History fluvoxaMINE MALEATE [Luvox] 100 mg PO HS 01/29/19 01/29/19 History traZODone HCL 50 mg PO HS 01/29/19 01/29/19 History Allergies Allergy/AdvReac Type Severity Reaction Status Date / Time No Known Allergies Allergy Verified 01/29/19 12:51 Physical Exam Vitals: Vital Signs Temp Pulse Pulse Resp BP BP Pulse Ox 01/30/19 08:19 70 01/30/19 08:07 70 01/30/19 07:00 97.9 F 54 L 16 162/63 91 L 01/30/19 01:50 98.7 F 58 L 18 119/61 92 L 01/29/19 21:01 22 01/29/19 20:44 98.7 F 67 21 157/55 93 L 01/29/19 19:59 99.8 F H 71 22 157/68 95 01/29/19 18:31 69 01/29/19 18:30 90 L 01/29/19 18:18 68 01/29/19 18:15 66 22 148/64 01/29/19 16:31 53 L 22 163/65 95 01/29/19 15:00 100.7 F H 59 L 16 94 L 01/29/19 14:21 22 01/29/19 13:35 63 01/29/19 13:33 65 97 01/29/19 13:30 57 L 01/29/19 12:53 22 01/29/19 12:22 98.4 F 62 18 152/61 93 L Intake and Output 01/29/19 01/30/19 01/30/19 22:59 06:59 14:59 Other: Voiding Method Toilet Toilet # Voids 1 Weight 122.47 kg 122.3 kg Results 01/30/19 07:48 01/30/19 07:48 Cardiac Enzymes 01/29/19 01/29/19 Range/Units 13:36 13:36 AST 32 (17-59) U/L Troponin I <0.012 (0.000-0.034) ng/mL Coagulation 01/29/19 Range/Units 13:36 PT 11.5 (9.0-12.0) sec APTT 36.6 H (22.0-30.0) sec CBC 01/29/19 01/30/19 Range/Units 13:36 07:48 WBC 5.2 6.3 (3.8-10.6) k/uL RBC 4.03 L 4.12 L (4.30-5.90) m/uL Hgb 12.5 L 12.5 L (13.0-17.5) gm/dL Hct 36.4 L 38.0 L (39.0-53.0) % Plt Count 183 198 (150-450) k/uL Comprehensive Metabolic Panel 01/29/19 01/30/19 Range/Units 13:36 07:48 Sodium 140 138 (137-145) mmol/L Potassium 4.0 4.3 (3.5-5.1) mmol/L Chloride 104 102 (98-107) mmol/L Carbon Dioxide 23 22 (22-30) mmol/L BUN 12 17 (9-20) mg/dL Creatinine 1.09 1.10 (0.66-1.25) mg/dL Glucose 136 H 256 H (74-99) mg/dL Calcium 9.2 9.4 (8.4-10.2) mg/dL AST 32 (17-59) U/L ALT 24 (21-72) U/L Alkaline Phosphatase 63 (38-126) U/L Total Protein 7.5 (6.3-8.2) g/dL Albumin 3.9 (3.5-5.0) g/dL Current Medications Generic Name Dose Route Start Last Admin Trade Name Freq PRN Reason Stop Dose Admin Acetaminophen 650 mg 01/29/19 18:07 Tylenol Tab PO Q6HR PRN Mild Pain or Fever > 100.5 Albuterol/Ipratropium 3 ml 01/29/19 20:00 01/30/19 08:07 Duoneb 0.5 Mg-3 Mg/3 Ml Soln INHALATION 3 ml RT-QID ELLIS Administration Amlodipine Besylate 5 mg 01/30/19 09:00 01/30/19 07:46 Norvasc PO 5 mg DAILY ELLIS Administration Clonazepam 1 mg 01/29/19 21:00 01/29/19 22:52 Klonopin PO 1 mg HS ELLIS Administration Dabigatran 150 mg 01/29/19 21:00 01/30/19 07:48 Pradaxa PO 150 mg BID ELLIS Administration Fluvoxamine Maleate 100 mg 01/29/19 21:00 01/29/19 22:51 Luvox PO 100 mg HS ELLIS Administration Furosemide 10 mg 01/30/19 09:00 01/30/19 07:46 Lasix IV 10 mg DAILY ELLIS Administration Azithromycin 500 mg/ Sodium 250 mls @ 250 mls/hr 01/30/19 09:00 Chloride IVPB DAILY ELLIS Ceftriaxone Sodium 1 gm/ 50 mls @ 100 mls/hr 01/30/19 09:00 01/30/19 07:47 Sodium Chloride IVPB 100 mls/hr DAILY ELLIS Administration Insulin Aspart 0 unit 01/30/19 07:30 01/30/19 07:40 Novolog SQ 4 unit AC-TID ELLIS Administration Protocol Losartan Potassium 100 mg 01/30/19 09:00 01/30/19 07:46 Cozaar PO 100 mg DAILY ELLIS Administration Melatonin 2.5 mg 01/29/19 21:00 01/29/19 22:51 Melatonin PO 2.5 mg HS ELLIS Administration Methylprednisolone Sodium Succinate 60 mg 01/29/19 18:00 01/30/19 06:13 Solu-Medrol IV 60 mg Q6HR ELLIS Administration Naloxone HCl 0.2 mg 01/29/19 18:07 Narcan IV Q2M PRN Opioid Reversal Olanzapine 2.5 mg 01/30/19 09:00 01/30/19 07:47 Zyprexa PO 2.5 mg DAILY ELLIS Administration Pantoprazole Sodium 40 mg 01/30/19 07:30 01/30/19 07:46 Protonix PO 40 mg AC-BRKFST ELLIS Administration Trazodone HCl 50 mg 01/29/19 21:00 01/29/19 22:51 Desyrel PO 50 mg HS ELLIS Administration Intake and Output 01/29/19 01/30/19 01/30/19 22:59 06:59 14:59 Other: Voiding Method Toilet Toilet # Voids 1 Weight 122.47 kg 122.3 kg 01/30/19 07:48 01/30/19 07:48
--- NOTE | 2019-01-30 14:01 | ECHOF ---
Referral Reason: MEASUREMENTS -------- HEIGHT: 170.2 cm WEIGHT: 122.0 kg BP: 162/63 RVIDd: 3.3 cm (< 3.3) IVSd: 1.4 cm (0.6 - 1.1) LVIDd: 4.9 cm (3.9 - 5.3) LVPWd: 1.5 cm (0.6 - 1.1) IVSs: 1.8 cm LVIDs: 3.2 cm LVPWs: 1.7 cm LA Diam: 4.4 cm (2.7 - 3.8) LAESV Index (A-L): 27.65 ml/m Ao Diam: 3.0 cm (2.0 - 3.7) MV EXCURSION: 14.056 mm (> 18.000) MV EF SLOPE: 46 mm/s (70 - 150) EPSS: 0.6 cm AV maxP.36 mmHg AV meanP.51 mmHg RAP: 15.00 mmHg RVSP: 55.72 mmHg FINDINGS -------- Atrial fibrillation. This was a technically adequate study. The left ventricular size is normal. There is moderate concentric left ventricular hypertrophy. O verall left ventricular systolic function is normal with, an EF between 55 - 60 %. The right ventricle is mildly enlarged. Normal LA size by volume 22+/-6 ml/m2. The right atrium is normal in size. Interatrial and interventricular septum intact. There is mild aortic valve sclerosis. There is mild aortic stenosis present. Peak/mean gradient a cross the Aortic Valve is 21.36mmHg / 10.51mmHg. The mitral valve leaflets are mildly thickened. Mild mitral annular calcification present. Mild m itral regurgitation is present. The peak and mean MV gradients are 15.06mmHg 2.95mmHg as measured by doppler. Mild tricuspid regurgitation present. There is moderate to severe pulmonary hypertension. The rig ht ventricular systolic pressure, as measured by Doppler, is 55.72mmHg. Trace/mild (physiologic) pulmonic regurgitation. The aortic root size is normal. The inferior vena cava is dilated with poor inspiratory collapse which is consistent with estimated r ight atrial pressure of 15 mmHg. There is no pericardial effusion. CONCLUSIONS -------- 1. Atrial fibrillation. 2. This was a technically adequate study. 3. The left ventricular size is normal. 4. There is moderate concentric left ventricular hypertrophy. 5. Overall left ventricular systolic function is normal with, an EF between 55 - 60 %. 6. Normal LA size by volume 22+/-6 ml/m2. 7. The right atrium is normal in size. 8. Interatrial and interventricular septum intact. 9. There is mild aortic valve sclerosis. 10. There is mild aortic stenosis present. 11. Peak/mean gradient across the Aortic Valve is 21.36mmHg / 10.51mmHg. 12. The mitral valve leaflets are mildly thickened. 13. Mild mitral annular calcification present. 14. Mild mitral regurgitation is present. 15. The peak and mean MV gradients are 15.06mmHg 2.95mmHg as measured by doppler. 16. Mild tricuspid regurgitation present. 17. There is moderate to severe pulmonary hypertension. 18. The right ventricular systolic pressure, as measured by Doppler, is 55.72mmHg. 19. Trace/mild (physiologic) pulmonic regurgitation. 20. The aortic root size is normal. 21. The inferior vena cava is dilated with poor inspiratory collapse which is consistent with estimat ed right atrial pressure of 15 mmHg. 22. There is no pericardial effusion. FILLING AND PACKING SUPERVISOR: Claritza Thomas RDCS
[2019-01-30 14:13] LABS: Cholesterol 181 mg/dL (<200); HDL Cholesterol 44 mg/dL (40-60); LDL Cholesterol,Calculated 127 mg/dL (0-99); Triglycerides 51 mg/dL (<150)
[2019-01-30] MEDS ORDERED: guaiFENesin-DM 100-10MG/5ML 10 ML CUP PO PRN (15:51)
[2019-01-30 16:40] LABS: Glucose,Whole Blood 323 mg/dL (75-99)
[2019-01-30 20:43] LABS: Glucose,Whole Blood 370 mg/dL (75-99)
[2019-01-30] MEDS: MELATONIN 5 MG TABLET PO SCH (22:01)
[2019-01-30] MEDS: traZODone HCL 50 MG TAB PO SCH (22:02)
[2019-01-30] MEDS: clonazePAM 1 MG TAB PO SCH (22:02)
[2019-01-31] MEDS: methylPREDNISolone SOD SUCCI 125 MG/2 ML VIAL IV SCH ×5 (00:04→23:35)
[2019-01-31] MEDS: IPRATROPIUM-ALBUTEROL 3 ML NEB INHALATION SCH ×6 (06:02→21:17)
[2019-01-31 07:19] LABS: Glucose,Whole Blood 262 mg/dL (75-99)
[2019-01-31] MEDS: INSULIN DETEMIR (LEVEMIR) 100 UNIT/ML SYR SQ SCH (08:08)
[2019-01-31] MEDS: INSULIN ASPART (NovoLOG) 100 UNIT/ML VIAL SQ SCH ×7 (08:09→21:06)
[2019-01-31] MEDS: FUROSEMIDE 10 MG/ML 4 ML VIAL IV SCH (08:12)
[2019-01-31] MEDS: DABIGATRAN 150 MG CAP PO SCH ×2 (08:13→21:05)
[2019-01-31] MEDS: PANTOPRAZOLE 40 MG TABLET PO SCH (08:13)
[2019-01-31] MEDS: AZITHROMYCIN 500 MG TAB PO SCH (08:13)
[2019-01-31] MEDS: LOSARTAN 50 MG TAB PO SCH (08:13)
[2019-01-31] MEDS: amLODIPine 5 MG TAB PO SCH (08:13)
[2019-01-31] MEDS: OLANZapine 2.5 MG TAB PO SCH (08:13)
[2019-01-31] MEDS ORDERED: INSULIN DETEMIR (LEVEMIR) 100 UNIT/ML SYR SQ SCH (09:51)
[2019-01-31 10:14] LABS: Calcium 9.3 mg/dL (8.4-10.2); Potassium 4.2 mmol/L (3.5-5.1)
--- NOTE | 2019-01-31 10:41 | P.PN ---
Subjective Progress Note Date: 01/31/19 Principal diagnosis: CHF exacerbation Patient was seen and examined. No acute events overnight. Patient reports a slight improvement in his breathing states that he is 50% back to baseline. He continues to complain of cough productive of clear and brown sputum. He also reports improvement in his lower extremity swelling. He denies any chest pain or palpitations. No nausea or vomiting. No fever or chills. States that he is on 3 L home O2. Sees a financial management analyst back in [place]. Objective - Vital Signs Vital signs: Vital Signs Temp 98.1 F 01/31/19 07:00 Pulse 64 01/31/19 09:20 Resp 16 01/31/19 07:00 BP 154/65 01/31/19 07:00 Pulse Ox 94 L 01/31/19 07:00 Intake & Output 01/30/19 01/31/19 01/31/19 18:59 06:59 18:59 Intake Total 240 Output Total 1209 478 [id number] Balance -1900 -735 -1800 Weight 120.7 kg Intake: Oral 240 Output: Urine 2731 [id number] Other: Voiding Method Toilet Toilet # Voids 3 - Exam General: [non toxic], [no distress], [appears at stated age] Derm: [warm], [dry] Head: [atraumatic], [normocephalic], [symmetric] Eyes: [EOMI], [no lid lag], [anicteric sclera] Mouth: [no lip lesion], [mucus membranes moist] Cardiovascular: [S1S2 reg], [irregularly irregular], [positive DP pulse bilateral], Lungs: [CTA bilateral], [rales right greater than left] , [no accessory muscle use] Abdominal: [soft], [ nontender to palpation], [no guarding], [no appreciable organomegaly] Ext: [no gross muscle atrophy], [no edema], [no contractures] Neuro: [no focal neuro deficits] Psych: [Alert], [oriented], [appropriate affect] - Labs CBC & Chem 7: 01/30/19 07:48 01/31/19 09:17 Labs: Abnormal Lab Results - Last 24 Hours (Table) 01/30/19 01/30/19 01/30/19 Range/Units 07:48 11:45 16:39 BUN (9-20) mg/dL Glucose (74-99) mg/dL POC Glucose (mg/dL) 285 H 323 H (75-99) mg/dL LDL Cholesterol, Calc 127 H (0-99) mg/dL 01/30/19 01/31/19 01/31/19 Range/Units 20:31 07:18 09:17 BUN 28 H (9-20) mg/dL Glucose 371 H (74-99) mg/dL POC Glucose (mg/dL) 370 H 262 H (75-99) mg/dL LDL Cholesterol, Calc (0-99) mg/dL Assessment and Plan Assessment: Acute on chronic hypoxic respiratory failure due to COPD exacerbation, component of CHF exacerbation CHF exacerbation, diastolic, EF 55-60% COPD exacerbation, likely caused by acute bronchitis Acute bronchitis Diabetes mellitus, insulin-dependent with hyperglycemia Atrial fibrillation on Pradaxa for anticoagulation Elevated BUN On 3 L home O2. Reading of O2 saturation 90% on RA in ED. D-dimer elevated, CTA chest rules out PE. No pneumonia seen on chest x-ray or CTA. Plans: O2 per NC to maintain O2 saturation greater than 92%. Optimize COPD medications. Continue IV diuresis for CHF. Antibiotics for acute bronchitis. Echocardiogram shows EF 55-60% with moderate LVH. BNP 1250. Plans: Strict intake and output. Daily weights. Continue Lasix 40 mg IV twice a day. Follow cardiology recommendations. Plans: Continue Solu-Medrol 60 g IV every 6 hours. DuoNeb every 4 hours for shortness of breath and wheezing. Plans: Robitussin as needed. DC ceftriaxone and continue azithromycin. [id number] glucose 262. Plans: Levemir 20 units in the morning. NovoLog 5 units 3 times a day. Insulin sliding scale. Regular Accu-Cheks. Hypoglycemic precautions. Rate controlled. Plans: Continue Pradaxa. BUN 28, creatinine within normal limits. Plans: Avoid nephrotoxins. Encourage hydration by mouth. Repeat BMP in the morning. [Patient admitted for CHF/COPD exacerbation. Cardiology on board. He is andrew rodriguez clinical improvement. Likely DC in 1-2 days.]
[2019-01-31 11:29] LABS: Glucose,Whole Blood 344 mg/dL (75-99)
--- NOTE | 2019-01-31 11:49 | P.PN ---
Subjective This is a pleasant 69-year-old male past medical history significant for persistent atrial fibrillation, chronic heart failure of unknown type, diabetes mellitus, hypertension, former nicotine dependence and gastroesophageal reflux disease. The patient is currently in [place] visiting his son from [facility]. He presented to the hospital with symptoms of shortness of breath. We have been asked to see him in consultation secondary to heart failure. He states for the previous couple of days he has noticed increased shortness of breath and productive cough. He had been using a friend's inhaler and was achieving some relief however his symptoms seemed to be getting worse and more frequent. On arrival x-ray of his chest revealed bilateral small pleural effusions and basilar consolidation with biapical pleural thickening. CT of the chest was negative for pulmonary embolism, small bilateral pleural effusions and compressive atelectasis. Laboratory data reviewed, WBC 6.3, hemoglobin 12.5, platelets 198, d-dimer 0.7, sodium 138, potassium 4.3, creatinine 1.1, magnesium 1.8, cardiac enzymes negative 1, NT proBNP 1250. Current daily cardiac medications include Primaxin 150 mg twice a day, losartan 100 mg daily and amlodipine 5 mg daily. EKG reveals atrial fibrillation with slow ventricular response, heart rate 56. Has been initiated on IV antibiotics per ER. 01/31/2019 Overall shows improvement in his symptoms of shortness of breath. He is seen and examined laying flat in bed in no acute distress. Blood pressure 154/65 heart rate 64 afebrile and maintaining oxygen saturation on nasal cannula. Ec hocardiogram obtained reveals preserved LV systolic function with EF 60-65%, mild mean gradient 10 mmHg, mild TR, mild MR, mild MS mean gradient 2 mmHg, moderate to severe PH with RVSP 55 mmHg with poor inspiratory collapse of IVC. Laboratory data reviewed, sodium 139, potassium 4.2, creatinine 1.25. Maintaining a negative fluid balance and weight is down 2 kg. GENERAL: This is a 69-year-old male in no apparent distress at the time of my examination. Morbidly obese. HEENT: Head is atraumatic, normocephalic. Pupils are equal, round. Sclerae anicteric. Conjunctivae are clear. Mucous membranes of the mouth are moist. Neck is supple. There is no jugular venous distention. No carotid bruit is heard. LUNGS: Bibasilar rales, expiratory wheeze. No rhonchi. No chest wall tendernes s is noted on palpation or with deep breathing. HEART: Irregular rate and rhythm with systolic ejection murmur at the left sternal border, no rubs or gallops. S1 and S2 heard. EXTREMITIES: No evidence of peripheral edema and no calf tenderness noted. ASSESSMENT Acute exacerbation of chronic heart failure, unknown type. Mild exacerbation Exacerbation of COPD Persistent atrial fibrillation on long-term anticoagulation Diabetes mellitus Hypertension Morbid obesity, BMI 41 PLAN Transition to oral diuretics. Would consider addition of aldactone as an outpatient by his primary garde manager once he returns to [place]. Stable for discharge from a cardiac perspective. Follow up with his primary garde manager when he returns home. If he decides to remain in town he should see Dr. Melgar in 2-3 weeks time. Nurse Practitioner note has been reviewed, I agree with a documented findings and plan of care. Patient was seen and examined. Objective - Vital Signs Vital signs: Vital Signs Temp 98.1 F 01/31/19 07:00 Pulse 64 01/31/19 09:20 Resp 16 01/31/19 07:40 BP 154/65 01/31/19 07:00 Pulse Ox 94 L 01/31/19 07:00 Intake & Output 01/30/19 01/31/19 01/31/19 18:59 06:59 18:59 Intake Total 240 Output Total 0221 936 1874 Balance -1900 -735 -1800 Weight 120.7 kg Intake: Oral 240 Output: Urine 7336 385 3356 Other: Voiding Method Toilet Toilet Toilet # Voids 3 - Labs CBC & Chem 7: 01/30/19 07:48 01/31/19 09:17 Labs: Abnormal Lab Results - Last 24 Hours (Table) 01/30/19 01/30/19 01/30/19 Range/Units 07:48 11:45 16:39 BUN (9-20) mg/dL Glucose (74-99) mg/dL POC Glucose (mg/dL) 285 H 323 H (75-99) mg/dL LDL Cholesterol, Calc 127 H (0-99) mg/dL 01/30/19 01/31/19 01/31/19 Range/Units 20:31 07:18 09:17 BUN 28 H (9-20) mg/dL Glucose 371 H (74-99) mg/dL POC Glucose (mg/dL) 370 H 262 H (75-99) mg/dL LDL Cholesterol, Calc (0-99) mg/dL 01/31/19 Range/Units 11:27 BUN (9-20) mg/dL Glucose (74-99) mg/dL POC Glucose (mg/dL) 344 H (75-99) mg/dL LDL Cholesterol, Calc (0-99) mg/dL
[2019-01-31 15:49] LABS: Hemoglobin A1C 7.3 % (4.0-6.0)
[2019-01-31 17:12] LABS: Glucose,Whole Blood 376 mg/dL (75-99)
[2019-01-31] MEDS: FUROSEMIDE 40 MG TAB PO SCH (17:17)
[2019-01-31] MEDS ORDERED: INSULIN ASPART (NovoLOG) 100 UNIT/ML VIAL SQ SCH ×2 (17:30→20:45)
[2019-01-31 20:17] LABS: Glucose,Whole Blood 399 mg/dL (75-99)
[2019-01-31] MEDS: MELATONIN 5 MG TABLET PO SCH (21:05)
[2019-01-31] MEDS: traZODone HCL 50 MG TAB PO SCH (21:05)
[2019-01-31] MEDS: clonazePAM 1 MG TAB PO SCH (21:05)
[2019-02-01] MEDS: IPRATROPIUM-ALBUTEROL 3 ML NEB INHALATION SCH ×6 (00:29→20:46)
[2019-02-01] MEDS: methylPREDNISolone SOD SUCCI 125 MG/2 ML VIAL IV SCH (05:39)
[2019-02-01 07:18] LABS: Glucose,Whole Blood 207 mg/dL (75-99)
[2019-02-01] MEDS ORDERED: INSULIN ASPART (NovoLOG) 100 UNIT/ML VIAL SQ SCH (07:30)
[2019-02-01] MEDS: INSULIN DETEMIR (LEVEMIR) 100 UNIT/ML SYR SQ SCH (07:50)
[2019-02-01] MEDS: INSULIN ASPART (NovoLOG) 100 UNIT/ML VIAL SQ SCH ×7 (07:50→21:20)
[2019-02-01] MEDS: PANTOPRAZOLE 40 MG TABLET PO SCH (07:51)
[2019-02-01] MEDS: AZITHROMYCIN 500 MG TAB PO SCH (07:51)
[2019-02-01] MEDS: amLODIPine 5 MG TAB PO SCH (07:51)
[2019-02-01] MEDS: OLANZapine 2.5 MG TAB PO SCH (07:52)
[2019-02-01] MEDS: DABIGATRAN 150 MG CAP PO SCH ×2 (07:52→21:22)
[2019-02-01] MEDS: FUROSEMIDE 40 MG TAB PO SCH ×2 (07:52→17:42)
[2019-02-01] MEDS: LOSARTAN 50 MG TAB PO SCH (07:52)
--- NOTE | 2019-02-01 09:36 | P.PN ---
Subjective Progress Note Date: 02/01/19 Principal diagnosis: COPD/CHF exacerbation Patient was seen and examined. No acute events overnight. Patient reports no changes in the splenic since yesterday. Complains of shortness of breath due to coughing fits. Reports that his cough is dry and unable to cough up sputum. He denies any chest pain or palpitations. No nausea or vomiting. No fever or chills. Saturating low 90s on this morning at rest. Objective - Vital Signs Vital signs: Vital Signs Temp 97.7 F 02/01/19 07:00 Pulse 60 02/01/19 07:37 Resp 16 02/01/19 07:00 BP 174/73 02/01/19 07:00 Pulse Ox 91 L 02/01/19 07:00 Intake & Output 01/31/19 02/01/19 02/01/19 18:59 06:59 18:59 Intake Total 240 Output Total 1800 Balance -1800 240 Weight 260.5 kg Intake: Oral 240 Output: Urine 1800 Other: Voiding Method Toilet - Exam General: [non toxic], [appears short of breath, speaking in 2-3 word sentences, saturating 90-92% on room air at rest], [appears at stated age] Derm: [warm], [dry] Head: [atraumatic], [normocephalic], [symmetric] Eyes: [EOMI], [no lid lag], [anicteric sclera] Mouth: [no lip lesion], [mucus membranes moist] Cardiovascular: [S1S2 reg], [irregularly irregular], [positive DP pulse bilate ral], Lungs: [Decreased breath sounds bilateral], [rales right greater than left, improved] , [no accessory muscle use] Abdominal: [soft], [ nontender to palpation], [no guarding], [no appreciable or ganomegaly] Ext: [no gross muscle atrophy], [no edema], [no contractures] Neuro: [no focal neuro deficits] Psych: [Alert], [oriented], [appropriate affect] - Labs CBC & Chem 7: 01/30/19 07:48 01/31/19 09:17 Labs: Abnormal Lab Results - Last 24 Hours (Table) 01/31/19 01/31/19 01/31/19 Range/Units 09:17 09:17 11:27 BUN 28 H (9-20) mg/dL Glucose 371 H (74-99) mg/dL POC Glucose (mg/dL) 344 H (75-99) mg/dL Hemoglobin A1c 7.3 H (4.0-6.0) % 01/31/19 01/31/19 02/01/19 Range/Units 17:10 20:15 07:16 BUN (9-20) mg/dL Glucose (74-99) mg/dL POC Glucose (mg/dL) 376 H 399 H 207 H (75-99) mg/dL Hemoglobin A1c (4.0-6.0) % Assessment and Plan Assessment: Acute on chronic hypoxic respiratory failure due to COPD exacerbation, component of CHF exacerbation CHF exacerbation, diastolic, EF 55-60% COPD exacerbation, likely caused by acute bronchitis Acute bronchitis Diabetes mellitus, insulin-dependent with hyperglycemia Atrial fibrillation on Pradaxa for anticoagulation Elevated BUN On 3 L home O2. Reading of O2 saturation 90% on RA in ED. D-dimer elevated, CTA chest rules out PE. No pneumonia seen on chest x-ray or CTA. Plans: O2 per NC to maintain O2 saturation greater than 92%. Optimize COPD medications. Continue diuresis by mouth for CHF. Antibiotics for acute bronchitis. Echocardiogram shows EF 55-60% with moderate LVH. BNP 1250. Plans: Strict intake and output. Daily weights. Transitioned to Lasix IV to oral. Cardiology cleared for discharge. Plans: Transition Solu-Medrol to prednisone. DuoNeb every 4 hours for shortness of breath and wheezing. Plans: Robitussin as needed. DC ceftriaxone and continue azithromycin for 1 more day. [id number] glucose 207. Likely from steroid use. Plans: Levemir 20 units in the morning. NovoLog from 5 to 14 units 3 times a day. Insulin sliding scale. Regular Accu-Cheks. Hypoglycemic precautions. Rate controlled. Plans: Continue Pradaxa. BUN 28, creatinine within normal limits. Plans: Avoid nephrotoxins. Encourage hydration by mouth. [Patient admitted for CHF/COPD exacerbation. He is pending clinical improvement. Obtain 6 minute walk test. Repeat chest x-ray. Likely DC today or tomorrow.]
[2019-02-01 11:25] LABS: Glucose,Whole Blood 244 mg/dL (75-99)
--- NOTE | 2019-02-01 16:40 | XR ---
EXAMINATION TYPE: XR chest 2V DATE OF EXAM: 02/01/2019 COMPARISON: 01/29/2019 HISTORY: Cough TECHNIQUE: Frontal and lateral views of the chest are obtained. FINDINGS: There is some coarsening of interstitial pulmonary markings. Heart size is normal. There i s no pleural effusion. There are no hilar masses. Bony thorax appears intact. IMPRESSION: Mild pulmonary fibrosis. There is clearing of the pleural effusions compared to old exam .
[2019-02-01 16:49] LABS: Glucose,Whole Blood 252 mg/dL (75-99)
[2019-02-01 20:12] LABS: Glucose,Whole Blood 275 mg/dL (75-99)
[2019-02-01] MEDS: clonazePAM 1 MG TAB PO SCH (21:19)
[2019-02-01] MEDS: traZODone HCL 50 MG TAB PO SCH (21:19)
[2019-02-01] MEDS: MELATONIN 5 MG TABLET PO SCH (21:19)
[2019-02-02] MEDS: IPRATROPIUM-ALBUTEROL 3 ML NEB INHALATION SCH ×4 (00:58→11:33)
[2019-02-02 07:14] LABS: Glucose,Whole Blood 161 mg/dL (75-99)
[2019-02-02 07:37] VITALS: BP 177/79; TEMP 97.7
[2019-02-02] MEDS: INSULIN DETEMIR (LEVEMIR) 100 UNIT/ML SYR SQ SCH (07:43)
[2019-02-02] MEDS: INSULIN ASPART (NovoLOG) 100 UNIT/ML VIAL SQ SCH ×4 (07:43→12:37)
[2019-02-02] MEDS: amLODIPine 5 MG TAB PO SCH (07:45)
[2019-02-02] MEDS: PANTOPRAZOLE 40 MG TABLET PO SCH (07:45)
[2019-02-02] MEDS: DABIGATRAN 150 MG CAP PO SCH (07:45)
[2019-02-02] MEDS: FUROSEMIDE 40 MG TAB PO SCH (07:45)
[2019-02-02] MEDS: AZITHROMYCIN 500 MG TAB PO SCH (07:45)
[2019-02-02] MEDS: LOSARTAN 50 MG TAB PO SCH (07:45)
[2019-02-02] MEDS: OLANZapine 2.5 MG TAB PO SCH (07:46)
[2019-02-02] MEDS ORDERED: predniSONE 50 MG TAB PO SCH (09:00)
--- NOTE | 2019-02-02 10:48 | P.DS ---
Providers Date of admission: 01/29/19 16:42 Expected date of discharge: 02/02/19 Attending physician: Anshu Colón MD Consults: 01/29/19 18:10 Consult Physician Routine Consulting Provider: Garrett Juarez Consult Reason/Comments: h/o CHF with moderate exacerbation, please evaluate and manage. Do you want consulting provider notified?: Yes Primary care physician: Physician Nonstaff Hospital Course: 69-year-old male with PMH of CHF, type 2 diabetes mellitus, atrial fibrillation, hypertension and long history of smoking presented to the ED for cough and shortness of breath. Patient reported living in [place] and is visiting his son in this area. Patient reports increased shortness of breath that got worsened in [place]. Patient reports a cough productive of brown sputum. He does report a sick contact on his flight over here to [place]. In the ED, chest x-ray was done which showed pleural effusion, correlate with CHF. D-dimer is elevated so CTA of the chest was performed which ruled out PE but showed small bilateral pleural effusion with compressive atelectasis. Cardiology was consulted and he was started on Lasix 40 mg IV twice a day. Echocardiogram was ordered which showed moderate concentric LVH with EF 55-60%. Patient was eventually transitioned to oral Lasix. He was also started on DuoNeb around the clock and Solu-Medrol for COPD exacerbation. Solu-Medrol was transitioned to prednisone on discharge. I consulted social work to obtain a nebulizer machine per patient. Patient is noted to be hyperglycemic throughout his hospitalization. This was likely secondary to IV steroid use. He was started on Levemir 20 units in the morning and NovoLog 5-14 units 3 times a day. Patient was seen and examined prior to discharge. No acute events overnight. Patient reports breathing almost back to baseline. He does continue to complain of cough productive of sputum. He denies chest pain or palpitations. States that he is going to try to book a flight back to [place] as soon as possible. General: [non toxic], [no distress], [appears at stated age] Derm: [warm], [dry] Head: [atraumatic], [normocephalic], [symmetric] Eyes: [EOMI], [no lid lag], [anicteric sclera] Mouth: [no lip lesion], [mucus membranes moist] Cardiovascular: [S1S2 reg], [irregularly irregular], [positive DP pulse bilateral], Lungs: [Decreased breath sounds bilateral], [rales right greater than left, improved] , [no accessory muscle use] Abdominal: [soft], [ nontender to palpation], [no guarding], [no appreciable organomegaly] Ext: [no gross muscle atrophy], [no edema], [no contractures] Neuro: [no focal neuro deficits] Psych: [Alert], [oriented], [appropriate affect] Acute on chronic hypoxic respiratory failure due to COPD exacerbation, component of CHF exacerbation CHF exacerbation, diastolic, EF 55-60% COPD exacerbation, likely caused by acute bronchitis Acute bronchitis Diabetes mellitus, insulin-dependent with hyperglycemia Atrial fibrillation on Pradaxa for anticoagulation Elevated BUN On 3 L home O2. Reading of O2 saturation 90% on RA in ED. D-dimer elevated, CTA chest rules out PE. No pneumonia seen on chest x-ray or CTA. 6 minute walk test negative for home O2. Plans: O2 per [place] to maintain O2 saturation greater than 92%. Optimize COPD medications. Continue diuresis by mouth for CHF. Antibiotics for acute bronchitis. Echocardiogram shows EF 55-60% with moderate LVH. BNP 1250. Plans: Strict intake and output. Daily weights. Transitioned to Lasix IV to oral. Cardiology cleared for discharge. Plans: Transition Solu-Medrol to prednisone. DuoNeb every 4 hours for shortness of breath and wheezing. Plans: Robitussin as needed. Completed course of azithromycin. [id number]. Likely from steroid use. Plans: Levemir 20 units in the morning. NovoLog from 5 to 14 units 3 times a day. Insulin sliding scale. Regular Accu-Cheks. Hypoglycemic precautions. Rate controlled. Plans: Continue Pradaxa. BUN 28, creatinine within normal limits. Plans: Avoid nephrotoxins. Encourage hydration by mouth. [Patient admitted for CHF/COPD exacerbation. Breathing has improved considerably. Passed 6 minute walk test. Social work consulted for nebulizer machine. DC today.] Pertinent Studies: Chest x-ray, chest CTA, echocardiogram Patient Condition at Discharge: Stable Plan - Discharge Summary Discharge Rx Participant: No New Discharge Prescriptions: New Furosemide [Lasix] 40 mg PO BID@0900,1600 #180 tab Ipratropium-Albuterol Nebulize [Duoneb 0.5 mg-3 mg/3 ml Soln] 3 ml INHALATION RT-Q4H #120 ampul.neb guaiFENesin [Mucinex] 600 mg PO Q12HR #14 tablet.er predniSONE 50 mg PO DAILY #2 tab Insulin Detemir (Levemir) [Levemir] 20 unit SQ DAILY@0700 syr INSULIN ASPART (NovoLOG) [NovoLOG (formulary)] 14 unit SQ AC-TID vial Continue traZODone HCL 50 mg PO HS fluvoxaMINE MALEATE [Luvox] 100 mg PO HS clonazePAM [KlonoPIN] 1 mg PO HS OLANZapine [ZyPREXA] 2.5 mg PO DAILY Melatonin 2.5 mg PO HS amLODIPine [Norvasc] 5 mg PO DAILY Omeprazole 20 mg PO DAILY Losartan Potassium 100 mg PO DAILY Dabigatran [Pradaxa] 150 mg PO BID Discharge Medication List Dabigatran [Pradaxa] 150 mg PO BID 01/29/19 [History] Losartan Potassium 100 mg PO DAILY 01/29/19 [History] Melatonin 2.5 mg PO HS 01/29/19 [History] OLANZapine [ZyPREXA] 2.5 mg PO DAILY 01/29/19 [History] Omeprazole 20 mg PO DAILY 01/29/19 [History] amLODIPine [Norvasc] 5 mg PO DAILY 01/29/19 [History] clonazePAM [KlonoPIN] 1 mg PO HS 01/29/19 [History] fluvoxaMINE MALEATE [Luvox] 100 mg PO HS 01/29/19 [History] traZODone HCL 50 mg PO HS 01/29/19 [History] Furosemide [Lasix] 40 mg PO BID@0900,1600 #180 tab 01/31/19 [Rx] INSULIN ASPART (NovoLOG) [NovoLOG (formulary)] 14 unit SQ AC-TID vial 02/02/19 [Rx] Insulin Detemir (Levemir) [Levemir] 20 unit SQ DAILY@0700 syr 02/02/19 [Rx] Ipratropium-Albuterol Nebulize [Duoneb 0.5 mg-3 mg/3 ml Soln] 3 ml INHALATION RT-Q4H #120 ampul.neb 02/02/19 [Rx] guaiFENesin [Mucinex] 600 mg PO Q12HR #14 tablet.er 02/02/19 [Rx] predniSONE 50 mg PO DAILY #2 tab 02/02/19 [Rx] Follow up Appointment(s)/Referral(s): Nonstaff,Physician [Primary Care Provider] - 1-2 days Activity/Diet/Wound Care/Special Instructions: Diet: Low-salt Follow-up PCP within 1-2 days of discharge. Please take all medications as advised. Discharge Disposition: HOME SELF-CARE
[2019-02-02 11:03] VITALS: RESP 18
[2019-02-02 11:44] LABS: Glucose,Whole Blood 135 mg/dL (75-99)
[2019-02-02 11:48] VITALS: PULSE 66
== END 2019-02-02 13:30 | disposition home or self-care (01) | DRG 291 ==
LOC: EC 12:20 → 4MS4W 16:42 → 4SSUR 18:58
PROVIDERS: ADMIT Family Medicine; ATTEND Family Medicine
DX: I11.0 Hypertensive heart disease with heart failure (principal); J96.21 Acute and chronic respiratory failure with hypoxia; J44.0 Chronic obstructive pulmonary disease with (acute) lower respiratory infection; J44.1 Chronic obstructive pulmonary disease with (acute) exacerbation; Z68.41 Body mass index [BMI] 40.0-44.9, adult; I48.1 Persistent atrial fibrillation; I50.33 Acute on chronic diastolic (congestive) heart failure; F41.9 Anxiety disorder, unspecified; K21.9 Gastro-esophageal reflux disease without esophagitis; J20.9 Acute bronchitis, unspecified; E11.69 Type 2 diabetes mellitus with other specified complication; E11.65 Type 2 diabetes mellitus with hyperglycemia; E66.01 Morbid (severe) obesity due to excess calories; F32.9 Major depressive disorder, single episode, unspecified; T38.0X5A Adverse effect of glucocorticoids and synthetic analogues, initial encounter; Z79.01 Long term (current) use of anticoagulants; Z79.02 Long term (current) use of antithrombotics/antiplatelets; Z79.4 Long term (current) use of insulin; Z87.891 Personal history of nicotine dependence; Z79.899 Other long term (current) drug therapy; Z99.81 Dependence on supplemental oxygen; Z98.890 Other specified postprocedural states; Z80.9 Family history of malignant neoplasm, unspecified
CPT/HCPCS: 36415; 71046; 71275; 80048; 80053; 80061; 83036; 83735; 83880; 84484; 85025; 85379; 85610; 85730; 93005; 93306; 94640; 94760; 96365; 96367; 96375; 99285